=== PATIENT | male | born 1970 | race Caucasian/White ===

== ENCOUNTER 2020-11-23 16:43 | Outpatient (REF) | payer OTHER, SELFPAY | END 2020-11-23 16:44 | disposition home or self-care (01) | LOC: HO.LNP 16:43 | PROVIDERS: Visit Provider Internal Medicine | DX: Z20.822 Contact with and (suspected) exposure to COVID-19 (principal); J06.9 Acute upper respiratory infection, unspecified | CPT/HCPCS: U0003; U0005 ==

== ENCOUNTER 2024-08-04 10:18 | Emergency (ER) | payer SELFPAY ==
--- NOTE | ~2024-08-04 | XR_ITS ---
EXAMINATION: XR WRIST, RIGHT CLINICAL INFORMATION: wrist pain. right COMPARISON: None available. TECHNIQUE: PA, lateral, and oblique views of the right wrist. FINDINGS: The bones and soft tissues are normal. No fracture. Alignment is anatomic with normal joint spaces. No erosions or abnormal soft tissue calcifications. XR/XR wrist RT min 3V IMPRESSION: Normal right wrist. Electronically signed by: Bin Mathew MD 08/04/2024 10:55 AM EDT
[2024-08-04 10:38] VITALS: BP 139/79; PULSE 84; RESP 18; TEMP 36.8; O2SAT 98; BMI 30.9
--- NOTE | 2024-08-04 12:58 | ED_ITS ---
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 Patient reports the pain is located on the anterior portion of the wrist, he states an area that is approximately 2 in in length. It is tender to touch and range the wrist. It hurts to open door knobs and do activities of daily living with his right hand. He denies any numbness, tingling, weakness in his hand, fingers or wrist. He reports intermittent shooting pains in the forearm. he has been wearing a velcro wrist splint with some improvements in his symptoms. MD Complaint: joint pain Onset (ago): week(s) Pain Consistency: constant Location: right and upper extremity Severity scale (1-10): 5 Quality: aching Radiation: proximal and distal Relieving factors: immobilization Exacerbating factors: range of motion and palpation Associated symptoms: denies other symptoms Related Data Previous Rx's ?Medication ?Instructions ?Recorded albuterol sulfate 90 mcg/actuation 1 inh inhalation Q4-6H PRN 11/23/20 breath activated powder inhaler shortness of breath or wheezing #1 ea azithromycin 250 mg tablet See Rx Instructions PO .COMPLEX #6 11/23/20 tabs Allergies Allergy/AdvReac Type Severity Reaction Status Date / Time No Known Allergies Allergy Verified 08/04/24 10:40 [No Known Allergies*] Review of Systems Review of Systems: Yes all other systems are reviewed and are negative [facility] Social History Social History Advance Directives: No Advance Directives Information Provided: No Physical Exam Vital Signs: Vital Signs: Last Vital Signs Temp 98.2 F 08/04/24 13:13 Pulse 84 08/04/24 13:13 Resp 18 08/04/24 13:13 BP 139/79 08/04/24 13:13 Pulse Ox 98 08/04/24 13:13 O2 Del Method Room Air 08/04/24 10:38 BMI result Body Mass Index 30.9 Appearance: Alert. Oriented X3. No acute distress. HEENT: normal inspection CVS: Normal heart rate and rhythm. Pulses normal. Respiratory: No respiratory distress. Skin: Skin warm and dry. Normal skin color. Normal skin turgor. No rashes. Extremities: Normal inspection of the bilateral hands and wrists, no joint swelling. Patient has discomfort with active and passive flexion and extension of the wrist along with medial and lateral movement of the wrist. There is tenderness over the area of the transverse carpal ligament without any production of sensory deficits or nerve pain extending into the hand with palpation of this. He is able to adduct and abduct all the digits equally. He is able to abduct the thumb to all digits without difficulty. 2+ radial pulse, cap refill is less than 3 seconds in all fingers. Neuro: Oriented X 3. No motor deficit. No sensory deficit. 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 Pain is worse with range of motion and less so with palpation. No sensory deficits, reports of tingling or weakness. He is having difficulties with simple tasks such as opening doors, pulling up his pants and getting dressed. X-ray today is normal. Will refer to Orthopedics and hand specialist for further evaluation and treatment. Encouraged NSAIDs, rest, ice, ongoing immobilization with a wrist splint until he is further evaluated by Orthopedics. Differential Diagnosis Differential Diagnoses: The differential diagnosis associated with the presentation includes Carpal tunnel syndrome, tendinopathy, wrist sprain, wrist fracture, nerve entrapment, arthritis, stress injury Independent Interpretation I performed an independent interpretation of an: Plain X-Ray Interpretation: no acute fracture or bony abnormality appreciated in the wrist Radiology Impression Discussion of test interpretation with radiology: I have reviewed the radiologist's reading. Prescription Management I considered prescription management with: Pain Medication Critical Care Time Critical Care Time Critical Care Time: No Discharge Plan Discharge Clinical Impression: Acute wrist pain Qualifiers: Laterality: right Qualified Code(s): M25.531 - Pain in right wrist Patient Disposition: Home, Self-Care Instructions: Wrist Injury (ED) Additional Instructions: your x-ray today was normal continue to wear the brace. start wearing it at night too take the prescribed anti-inflammatory 2 times per day - take it with food ice it several times per day follow up with orthopedics for further evaluation and treatment - call for an appointment If you develop new or worsening symptoms call 911 or come back to the ER for further evaluation. Prescriptions: No Action albuterol sulfate 90 mcg/actuation aerosol powdr breath activated 1 inh inhalation Q4-6H PRN (Reason: shortness of breath or wheezing) Qty: 1 0RF azithromycin 250 mg tablet See Rx Instructions PO .COMPLEX Qty: 6 0RF Rx Instructions: take 500 mg today (day 1), then 250 mg for 4 days (days 2-5) PO Ref[place]: [facility] [place] Group] Brenda Zamudio NP [Primary Care Provider] - Interventions: ED Discharge Assessment Last Done: 08/04/24 13:13 Discharge Date/Time: 08/04/24 13:13 Print Language: [place]ian
[2024-08-04 13:13] VITALS: BP 139/79; PULSE 84; RESP 18; TEMP 36.8; O2SAT 98
== END 2024-08-04 13:13 | disposition home or self-care (01) ==
PROVIDERS: Emergency Provider Emergency Medicine; PCP Nurse Practitioner Family
DX: M25.531 Pain in right wrist (principal)
CPT/HCPCS: 73110; 99282; 99283

== ENCOUNTER → 2024-08-04 10:45 | Outpatient (BNV) | payer OTHER, SELFPAY | PROVIDERS: Visit Provider Radiology Diagnostic Radiology | DX: M25.531 Pain in right wrist (principal) | CPT/HCPCS: 73110 ==

== ENCOUNTER 2024-08-21 08:42 | Outpatient (REF) | payer OTHER, SELFPAY | END 2024-08-21 08:43 | disposition home or self-care (01) | LOC: HO.HOSX 08:42 | DX: Z13.89 Encounter for screening for other disorder (principal) ==

== ENCOUNTER 2024-12-22 11:26 | Emergency (ER) | payer OTHER, SELFPAY ==
--- NOTE | ~2024-12-22 | XR_ITS ---
EXAMINATION: XR CHEST CLINICAL INFORMATION: cough COMPARISON: None available. TECHNIQUE: 2 views of the chest were obtained. FINDINGS: The cardiac, hilar, and mediastinal contours are normal. Lungs demonstrate consolidation of the right middle lobe. This is best appreciated on the lateral projection. Lungs otherwise grossly clear. There is no effusion. There is no pneumothorax or pleural effusion. There is no focal osseous or soft tissue abnormality. XR/XR chest 2V IMPRESSION: Right middle lobe pneumonia. Electronically signed by: Bin Mathew MD 12/22/2024 12:34 PM EDT RP
--- NOTE | 2024-12-22 11:38 | ED_ITS ---
HPI - URI/Sore Throat General Chief Complaint: Upper Respiratory Symptoms Stated Complaint: Cough Time Seen by Provider: 12/22/24 13:17 History of Present Illness ED Provider: Aguila Briggs MD HPI Narrative: 54-year-old male who has patient reports 3 weeks of cough worsening no hemoptysis. No pleuritic chest pain he has sore throat denies chills or night sweats despite triage note. Has not seen a doctor in about 3 years. Related Data Previous Rx's ?Medication ?Instructions ?Recorded albuterol sulfate 90 mcg/actuation 1 inh inhalation Q4 -6H PRN 11/23/20 breath activated powder inhaler shortness of breath or wheezing #1 ea azithromycin 250 mg tablet See Rx Instructions PO .COM PLEX #6 11/23/20 tabs albuterol sulfate 90 mcg/actuation 2 puff inhalation Q 6H PRN 12/22/24 aerosol inhaler shortness of breath or wheez ing #8.5 grams amoxicillin 875 mg-potassium 1 tab PO BID 6 days #12 t abs 12/22/24 clavulanate 125 mg tablet azithromycin 250 mg tablet 250 mg PO DAILY 4 days #4 t abs 12/22/24 prednisone 20 mg tablet 60 mg (3 x 20 mg) PO DAILY 2 days 12/22/24 #6 tabs Allergies Allergy/AdvReac Type Severity Reaction Status Date / Time No Known Allergies (No Known Allergy Verified 12/22/24 11:42 Allergies*) [facility] Social History Social History Advance Directives: No Advance Directives Information Provided: Yes Physical Exam Exam: Exam: EXAM: Gen: Alert, awake, well appearing, well hydrated. Head: Atraumatic Eyes: Anicteric, Normal conjunctiva. ENT: Moist mucosa, no pallor. ?Mild cobblestoning of the posterior oropharynx Neck: Supple. Skin: ?No observable rash or bruising on exposed or examined skin Respiratory: Breathing comfortably speaking full sentences but diffuse coarse wheezing throughout. Cardiovascular: Regular rate and rhythm. No murmurs or rub. Well perfused periphery, warm extremities. No edema. ? Abdominal: No focal tenderness. Soft, no objective distension. No palpable masses or obvious organomegaly. ?No guarding, no rebound tenderness or other peritoneal findings. : No flank tenderness. Neuro: Alert. Gross movement of all extremities intact. ? Psych: Calm. Cooperative. MSK: No grossly visible deformity. Vital signs: See flowsheet Vital Signs: Vital Signs: Last Vital Signs Temp 0 F L 12/22/24 15:00 Pulse 90 12/22/24 15:00 Resp 18 12/22/24 15:00 BP 00/00 L 12/22/24 15:00 Pulse Ox 97 12/22/24 13:57 O2 Del Method Room Air 12/22/24 13:57 BMI result Body Mass Index 30.4 Course Course Course Narrative: This is an RME: Additional HPI, ROS, PE not included below will be deferred to primary provider. RME assessment and note performed by: Bria Yoder PA-C This is a [id number]-male, with no known medical problems, who presents to the ER with a complaints of sore throat and productive cough with green sputum x 3 weeks. Reporting chest pain only with cough. +Sick contacts. Does endorse diarrhea. Plan: xray, influenza, covid Medications Administered Discontinued Medications Generic Name Dose Route Start Last Admin Trade Name Freq PRN Reason Stop Dose Admin Albuterol Sulfate 2.5 mg 12/22/24 13:39 12/22/24 14:37 Albuterol Sulfate (0.083%) 2.5 Mg/3 Ml Vial.Neb INHALE 12/22/24 13:40 Not Given ONCE ONE Albuterol Sulfate 4 puff 12/22/24 14:42 12/22/24 14:46 Albuterol Sulfate 90 Mcg 8 Gm Inhaler INHALE 12/22/24 14:43 4 puff ONCE ONE Administration Amoxicillin/Clavulanate Potassium 875 mg 12/22/24 13:40 12/22/24 13:53 Amoxicillin/Potassium Clav 875 Mg Tablet PO 12/22/24 13:41 875 mg ONCE ONE Administration Azithromycin 500 mg 12/22/24 13:40 12/22/24 13:53 Azithromycin 500 Mg Tablet PO 12/22/24 13:41 500 mg ONCE ONE Administration Prednisone 60 mg 12/22/24 13:39 12/22/24 13:53 Prednisone 20 Mg Tablet PO 12/22/24 13:40 60 mg ONCE ONE Administration Medical Decision Making Medical Decision Making MDM Narrative: Medical Decision Makin-year-old male with cough. No hypoxia or distress. No SIRS or sepsis criteria met. Right middle lobe pneumonia on x-ray. Wheezing. Possibly bronchitis and pneumonia. Viral panel negative. It azithromycin Z-Avery prednisone Preliminary Favored Differential Diagnosis: Viral syndrome, URI, pneumonia among additional considered etiologies Testing Interpreted Independently: ?See below for details Radiology or Lab testing Results Reviewed: ?See below for details Consults: ?See below for details Independent Historians/External Chart Reviews: ?See below for details Social Determinants of Health Impacting MDM/Planning: ?See below for details Lab Data MDM Lab Attestation statement: I reviewed the patient's lab results. Labs: Lab Results 12/22/24 Range/Units 11:57 COVID-19 (CAL) Invalid (Negative) COVID-19 Clin Com See Note Influenza Type A (BEK[facility]) Negative (Negative) Influenza Type B (BEKAH) Negative (Negative) Influenza A & B Note See Note Discharge Plan Discharge Clinical Impression: Pneumonia Patient Disposition: Home, Self-Care Instructions: Community Acquired Pneumonia (DC) Additional Instructions: DISCHARGE DIAGNOSES: Pneumonia right side HISTORY OF PRESENTATION: ?Cough chills EMERGENCY DEPARTMENT COURSE,TESTS, TREATMENTS: While in the ED today you had an x-ray which showed right middle lobe pneumonia. Viral panel negative DISCHARGE MEDICATIONS: ?Azithromycin 250 mg for the next 4 days, Augmentin for the next 6 days and albuterol/prednisone FOLLOW-UP: ?Call your primary or general physician soon as possible to discuss your symptoms, your ED visit and to discuss follow up plans Call your PCP INSTRUCTIONS ?& RETURN PRECAUTIONS: If any symptoms change first call your primary physician, if it is after-hours your primary doctors office should have a provider community relations specialist you can speak with. If the symptoms are severe or very concerning to you then call 911 or return to the ED. Aguila Briggs MD Emergency Physician [facility] Prescriptions: New azithromycin 250 mg tablet 250 mg PO DAILY 4 Days Qty: 4 0RF prednisone 20 mg tablet 60 mg PO DAILY 2 Days Qty: 6 0RF amoxicillin-pot clavulanate 875-125 mg tablet 1 tab PO BID 6 Days Qty: 12 0RF albuterol sulfate 90 mcg/actuation HFA aerosol inhaler 2 puff inhalation Q6H PRN (Reason: shortness of breath or wheezing) Qty: 8.5 0RF No Action albuterol sulfate 90 mcg/actuation aerosol powdr breath activated 1 inh inhalation Q4-6H PRN (Reason: shortness of breath or wheezing) Qty: 1 0RF azithromycin 250 mg tablet See Rx Instructions PO .COMPLEX Qty: 6 0RF Rx Instructions: take 500 mg today (day 1), then 250 mg for 4 days (days 2-5) PO Interventions: ED Discharge Assessment Last Done: 12/22/24 15:00 Discharge Date/Time: 12/22/24 17:26 Print Language: [place]
[2024-12-22 11:39] VITALS: BP 143/88; PULSE 89; RESP 18; TEMP 36.8; O2SAT 98; BMI 30.4
[2024-12-22 12:19] LABS: IDNOW Serial# 55D5AD1C
[2024-12-22 12:20] LABS: Influenza B2 Negative (Negative)
[2024-12-22 12:34] LABS: IDNOW Serial# 58CA691E
[2024-12-22 12:42] LABS: COVID-19 Test Invalid (Negative)
[2024-12-22 13:57] VITALS: BP 149/76; PULSE 88; RESP 18; TEMP 36.2; O2SAT 97
[2024-12-22 14:45] VITALS: PULSE 90; RESP 18; O2SAT 100
[2024-12-22] MEDS: Albuterol Sulfate 90 MCG 8 GM INHALER 4 PUFF INHALE (14:46)
[2024-12-22 15:00] VITALS: BP 00/00; PULSE 90; RESP 18; TEMP -17.7; TEMP 0
== END 2024-12-22 17:26 | disposition home or self-care (01) ==
PROVIDERS: Physician Assistant Medical; Emergency Provider Emergency Medicine; PCP Nurse Practitioner Family
DX: J18.1 Lobar pneumonia, unspecified organism (principal); R05.9 Cough, unspecified; R06.2 Wheezing
CPT/HCPCS: 71046; 87502; 87635; 94640; 99283; 99284

== ENCOUNTER → 2024-12-22 11:44 | Outpatient (BNV) | payer MEDICAID, SELFPAY | PROVIDERS: PCP Nurse Practitioner Family; Visit Provider Radiology Diagnostic Radiology | DX: J18.1 Lobar pneumonia, unspecified organism (principal) | CPT/HCPCS: 71046 ==